=== PATIENT | female | born 1935 | race Two or more races ===

== ENCOUNTER 2019-01-09 12:15 | Inpatient (IN) | payer OTHER ==
[~2019-01-09] VITALS: Ht 160 cm; Wt 69.9 kg
[2019-01-12] MEDS ORDERED: COZAAR25 MG PO (11:57)
[2019-01-12] MEDS ORDERED: TOPROL XL100 M1 PO (11:57)
[2019-01-12] MEDS ORDERED: ATORVASTATIN CA20 MG PO (11:58)
[2019-01-12] MEDS ORDERED: OMEPRAZOLE40 MG PO (11:58)
[2019-01-12] MEDS ORDERED: AMLODIPINE BESYL5 MG PO (11:58)
== END 2019-01-18 17:48 | DRG 470 ==
LOC: O/R 12:15 → SURH 01-16 06:39 → O/R 01-16 06:39 → SURH 01-16 09:45
PROVIDERS: ADMIT Orthopaedic Surgery
PROC: 0SRC0J9 Replacement of Right Knee Joint with Synthetic Substitute, Cemented, Open Approach (ICD-10-PCS; principal; 2019-01-16 09:45)
DX: M17.11 Unilateral primary osteoarthritis, right knee (principal); D62 Acute posthemorrhagic anemia; E78.00 Pure hypercholesterolemia, unspecified; I10 Essential (primary) hypertension

== ENCOUNTER 2020-03-05 12:09 | Day surgery (SDC) | payer OTHER ==
[~2020-03-05 12:09] MED LIST: AMLODIPINE BESYL5 MG PO; ATORVASTATIN CA20 MG PO; COZAAR25 MG PO; OMEPRAZOLE40 MG PO; TOPROL XL100 M1 PO
== END 2020-03-05 23:22 | disposition home or self-care (01) ==
LOC: CIR.AMB 12:09
PROVIDERS: ATTEND Colon & Rectal Surgery
DX: K64.8 Other hemorrhoids (principal); K64.4 Residual hemorrhoidal skin tags; Z20.828 Contact with and (suspected) exposure to other viral communicable diseases